=== PATIENT | female | born 1985 | race Caucasian/White ===

== ENCOUNTER → 2020-07-12 09:07 | Outpatient (BNVA) | payer OTHER, SELFPAY | PROVIDERS: Visit Provider Advanced Practice Midwife | DX: Z76.89 Persons encountering health services in other specified circumstances (principal) ==

== ENCOUNTER → 2020-09-06 11:06 | Outpatient (BNVA) | payer OTHER, SELFPAY | PROVIDERS: PCP Pediatrics; Visit Provider Advanced Practice Midwife | DX: Z76.89 Persons encountering health services in other specified circumstances (principal) ==

== ENCOUNTER → 2021-08-01 13:36 | Outpatient (BNVA) | payer OTHER, SELFPAY | PROVIDERS: PCP Pediatrics; Visit Provider Obstetrics & Gynecology ==

== ENCOUNTER → 2021-08-16 09:30 | Outpatient (BNVA) | payer OTHER, SELFPAY | PROVIDERS: PCP Pediatrics; Visit Provider Advanced Practice Midwife ==

== ENCOUNTER → 2021-10-03 12:43 | Outpatient (BNVA) | payer OTHER, SELFPAY | PROVIDERS: PCP Pediatrics; Visit Provider Obstetrics & Gynecology ==

== ENCOUNTER 2021-10-03 14:34 | Outpatient (REF) | payer OTHER, SELFPAY ==
--- NOTE | ~2021-10-03 | US_ITS ---
EXAMINATION: US PELVIS CLINICAL INFORMATION: Check IUD placement COMPARISON: Previous pelvic ultrasound May 2020 TECHNIQUE: Transabdominal pelvic ultrasound was performed. Patient declined transvaginal exam. FINDINGS: The uterus is anteverted and measures 7 x 2.9 x 4.3 cm in dimension. There is an IUD in the uterus and satisfactory position. Endometrial thickness is normal measuring 4 mm. No focal uterine lesion is seen. The ovaries are normal-appearing. The right ovary measures 2.2 x 1.6 x 1.5 cm. The left ovary measures 2.6 x 1.4 x 2 cm. There is no fluid in the pelvis. US/US pelvic complete IMPRESSION: IUD in the uterus in satisfactory position.
== END 2021-10-03 14:35 | disposition home or self-care (01) ==
LOC: HO.US 14:34
PROVIDERS: PCP Pediatrics; Visit Provider Obstetrics & Gynecology
DX: T83.32XD Displacement of intrauterine contraceptive device, subsequent encounter (principal)
CPT/HCPCS: 76856

== ENCOUNTER 2021-10-06 10:10 | Day surgery (SDC) | payer OTHER, SELFPAY ==
[2021-09-26 14:14] VITALS: BMI 27.4
--- NOTE | 2021-10-05 12:14 | HO.ANESPROP2 ---
Documented by User: Rach Lackey NP 10/05/21 12:15 HPI - Anesthesia Eval Consult details Narrative: 36yo F for Hysteroscopy with IUD removal PMFSH Active Problems Active Problems: All Active Problems (Updated 08/01/21 @ 13:58 by Ricardo Bonner MD) Family planning advice (Acute) Past medical history not known due to adoption (Acute) Adopted (Acute) Well woman exam with routine gynecological exam (Acute) IUD strings lost (Acute) Encounter to discuss test results (Acute) Past Medical History Medical History Adopted Asthma Hx of anxiety disorder Past medical history not known due to adoption Family History Family History Other Adopted Surgical History Surgical History History of loop electrical excision procedure (LEEP) Hx of tonsillectomy Hx of wisdom tooth extraction Social History Social History Alcohol intake: current Alcohol intake frequency: holidays/special occasions only Patient Tobacco Use Status: Former Tobacco user Advance Directives: No Advance Directives Information Provided: Yes (informational brochure mailed) Advance Directives on File: No Meds Allergies Allergy/AdvReac Type Severity Reaction Status Date / Time iodine Allergy Intermediate Hives Verified 10/06/21 10:25 shellfish derived Allergy Intermediate Hives Verified 10/06/21 10:25 Home Medications Medication Instructions Recorded Confirmed Last Taken Type albuterol sulfate 90 mcg/actuation 2 puff INHALATION Q4H PRN 07/12/20 Unknown History aerosol inhaler levonorgestrel 20 mcg/24 hours (7 VAGINAL 07/12/20 Unknown History yrs) 52 mg intrauterine device loratadine 10 mg tablet (Claritin) 10 mg PO DAILY 07/12/20 10/06/21 08:00 History bupropion HCl 300 mg 24 hr tablet, 300 mg PO DAILY 08/01/21 10/06/21 08:00 History extended release Exam Exam Date and Time: October 05, 2021 1214 Height,Weight and Vital Signs: Height 5 ft 3 in Weight 70.307 kg Assessment and Plan Assessment Anesthesia Assessment: Chart Reviewed Documented by User: Shimon Torrez 10/06/21 10:51 PMF Past Medical History Medical History Adopted Asthma Hx of anxiety disorder Past medical history not known due to adoption Functional capacity: independent ambulation Family History Family History Other Adopted Family history of problems with anesthesia: Unobtainable Surgical History Surgical History History of loop electrical excision procedure (LEEP) Hx of tonsillectomy Hx of wisdom tooth extraction History of Problems with Anesthesia: Yes Social History Social History Alcohol intake: current Alcohol intake frequency: holidays/special occasions only Patient Tobacco Use Status: Former Tobacco user Advance Directives: No Advance Directives Information Provided: Yes (informational brochure mailed) Advance Directives on File: No Meds Allergies Allergy/AdvReac Type Severity Reaction Status Date / Time iodine Allergy Intermediate Hives Verified 10/06/21 10:25 shellfish derived Allergy Intermediate Hives Verified 10/06/21 10:25 Home Medications Medication Instructions Recorded Confirmed Last Taken Type albuterol sulfate 90 mcg/actuation 2 puff INHALATION Q4H PRN 07/12/20 Unknown History aerosol inhaler levonorgestrel 20 mcg/24 hours (7 VAGINAL 07/12/20 Unknown History yrs) 52 mg intrauterine device loratadine 10 mg tablet (Claritin) 10 mg PO DAILY 07/12/20 10/06/21 08:00 History bupropion HCl 300 mg 24 hr tablet, 300 mg PO DAILY 08/01/21 10/06/21 08:00 History extended release Exam Airway Mallampati Class: II TM Dist: >3cm Neck ROM: Full Loose/Missing/Broken Teeth: Yes (Fillings ) Heart: rrr Lungs: bl breath sounds Assessment and Plan Final Anesthetic Review Family History of Problems with Anesthesia: Unobtainable History of Problems with Anesthesia: Yes NPO: Yes ASA Class: II Final Preanesthetic Review: Meds/Allgs Chart Reviewed and Anes Risks/Benef Reviewed Patient Risk: Intermediate Procedure Risk: Intermediate Anesthetic Plan Anesthetic Plan: GA Disposition: Standard PACU
[2021-10-06] VITALS (7 sets, daily range): BP systolic 130–150; BP diastolic 78–87; PULSE 81–131; RESP 14–18; TEMP 36.6–36.8; O2SAT 97–100
[2021-10-06 10:36] LABS: UPreg QC Valid YES
[2021-10-06 10:37] LABS: Urine Pregnancy NEGATIVE (NEGATIVE)
[2021-10-06] MEDS: Lactated Ringers 1,000 ML 100 ML IVCONT (10:50)
--- NOTE | 2021-10-06 11:28 | MHC.SHP ---
Pre-Procedural Eval Section A Date of Service: 10/06/21 The patient is an INPATIENT: No Changes since office visit: No Cold of Flu in the past 2 weeks, No New Medical Problems, No Changes in Medication and No Patient answered all questions The History & Physical has been completed within 30 days and I have reviewed it.: Yes Section B Chief Complaint: displacement of IUD Allergies: Allergies Allergy/AdvReac Type Severity Reaction Status Date / Time iodine Allergy Intermediate Hives Verified 10/06/21 10:25 shellfish derived Allergy Intermediate Hives Verified 10/06/21 10:25 Plan Diagnosis/Plan: Unchanged I have reviewed the history and physical and performed a pertinent physical examination on my patient. No changes have occurred unless specified.
--- NOTE | 2021-10-06 11:44 | P.OP_ITS ---
Operative Note Operative Note Date of Service: 10/06/21 Narrative: Preop Diagnosis: IUD complication, lost string Operation: Diagnostic Hysteroscopic IUD removal Post Op Diagnosis: same. IUD and string in utero QBL: Minimal Anesthesia: MAC Surgeon: Ricardo Bonner MD Retail Sales Associate Bilingual: None Complication: None Pathology: None Procedure: The patient was put in the dorsal lithotomy position, scrubbed, and draped in the usual manner. A sterile speculum was inserted in the patient's vagina. The anterior lip of the cervix was grasped with a single tooth tenaculum. The cervix was dilated up to 5 mm, then the scope was inserted in the patient's uterus. Inspection revealed IUD & its string in utero. A hysteroscopic grasper was introduced through the operative channel, the string grasped and IUD pulled out of the uterine cavity with no complications. At the end of the procedure, all instruments were taken out of the patient uterine and vaginal cavity. The single tooth tenaculum was removed and homeostasis was assured using pressure. The patient tolerated the procedure well and was transferred to the PACU in a stable condition.
--- NOTE | 2021-10-06 11:44 | PM.OP ---
Brief Operative Note Date of Service: 10/06/21 Pre-op diagnosis: IUD complication, lost string Post-op diagnosis: same (IUD in utero) Procedure: Hysteroscopic IUD removal Surgeon: Ricardo Bonner MD Anesthesia: MAC Was an Lye Machine Operator used for this Procedure?: No Estimated blood loss (mL): 0 Pathology: other (None) Condition: stable Disposition: PACU
[2021-10-06] MEDS: Acetaminophen 325 MG TABLET 650 MG PO (12:02)
[2021-10-06] MEDS: oxyCODONE HCl Immed Release 5 MG TABLET PO (12:02)
== END 2021-10-06 13:24 | disposition home or self-care (01) ==
PROVIDERS: Nurse Practitioner; PCP Pediatrics; Visit Provider Obstetrics & Gynecology
PROC: 0UJD8ZZ Inspection of Uterus and Cervix, Via Natural or Artificial Opening Endoscopic (ICD-10-PCS; CPT 58555; principal; 2021-10-06 11:20)
DX: T83.32XA Displacement of intrauterine contraceptive device, initial encounter (principal); Y76.1 Therapeutic (nonsurgical) and rehabilitative obstetric and gynecological devices associated with adverse incidents; Y92.9 Unspecified place or not applicable; J45.909 Unspecified asthma, uncomplicated; Z79.899 Other long term (current) drug therapy; Z88.8 Allergy status to other drugs, medicaments and biological substances; Z87.891 Personal history of nicotine dependence
CPT/HCPCS: 58562; 81025; J1100; J2250; J2405; J3010

== ENCOUNTER → 2021-10-19 12:37 | Outpatient (BNVA) | payer OTHER, SELFPAY | PROVIDERS: PCP Pediatrics; Visit Provider Obstetrics & Gynecology ==

== ENCOUNTER → 2022-01-17 10:52 | Outpatient (BNVA) | payer OTHER, SELFPAY | PROVIDERS: PCP Pediatrics; Visit Provider Obstetrics & Gynecology | DX: Z13.89 Encounter for screening for other disorder (principal) ==